=== PATIENT | female | born 1965 | race Caucasian/White ===

== ENCOUNTER 2018-10-12 04:21 | Emergency (ER) | payer MEDICAID ==
[~2018-10-12] VITALS: Ht 162.6 cm; Wt 92.3 kg
[2018-10-12 04:25] VITALS: Ht 162.6 cm; Wt 92.3 kg
[2018-10-12] MEDS ORDERED: DEXAMETHASONE 10 MG/ML 1 ML INJ IM ONE (05:00)
[2018-10-12] MEDS ORDERED: IBUPROFEN 600 MG TAB PO ONE (05:30)
[2018-10-12] MEDS ORDERED: RACEPINEPHRINE 2.25%(NEB) 0.5 ML AMP HHN ONE (05:30)
[2018-10-12] MEDS ORDERED: LORAZEPAM 0.5 MG TAB PO ONE (05:30)
[2018-10-12] MEDS ORDERED: PRED20TA PO (05:44)
[2018-10-12 05:49] VITALS: BP 129/79; PULSE 65; RESP 19
--- NOTE | 2018-10-12 05:51 | ERD ---
ER Documentation Chief Complaint Chief Complaint woke up about 20 minutes ago c/o sore throat/sob/anxious. lungs clear. HPI 53-year-old female presenting with neck pain and trouble swallowing. She feels like something is swollen and stuck in her neck. She denies any foreign bodies. She has anxiety associated with the fact that she feels there is something swelling in her neck. She denies any shortness of breath or trouble swallowing. She has never had this before. Has not taken medications for her symptoms. Denies medical problems. Allergic to pollen however no allergies to medications. NKDA. Surgical history denies. ROS All systems reviewed and are negative except as per history of present illness. Medications Home Meds Active Scripts Prednisone* (Prednisone*) 20 Mg Tab, 40 MG PO DAILY for 4 Days, TAB Prov:BENJI PONCE PA-C 10/12/18 Allergies Allergies: Coded Allergies: No Known Allergy (Unverified , 10/12/18) PMhx/Soc Medical and Surgical Hx: pt denies Medical Hx, pt denies Surgical Hx Hx Alcohol Use: No Hx Substance Use: No Hx Tobacco Use: No FmHx Family History: No diabetes, No coronary disease, No other Physical Exam Vitals Vital Signs Date Temp Pulse Resp B/P (MAP) Pulse Ox O2 O2 Flow FiO2 Time Delivery Rate 10/12/18 75 18 97 21 05:21 10/12/18 98.0 91 18 144/78 100 04:25 (100) Physical Exam GENERAL: The patient is well-appearing, well-nourished, in no acute distress HEENT: Atraumatic. Conjunctivae are pink. Pupils equal, round, and reactive to light. There is no scleral icterus. Tympanic membranes clear bilaterally. Oropharynx clear. NECK: C-spine is soft and supple. There is no meningismus. There is no cervical lymphadenopathy. CHEST: Clear to auscultation bilaterally. There are no rales, wheezes or rhonchi. HEART: Regular rate and rhythm. No murmurs, clicks, rubs or gallops. No S3 or S4. Results 24 hrs Current Medications Medications Dose Sig/Dmitri Start Time Status Last (Trade) Ordered Route PRN Stop Time Admin Dose Reason Admin 10 mg ONCE ONCE 10/12/18 DC 10/12/18 Dexamethasone IM 05:00 05:02 (Decadron) 10/12/18 05:01 Epinephrine 0.5 ml ONCE ONCE 10/12/18 DC 10/12/18 HHN 05:30 05:21 (Racepinephri 10/12/18 ne 2.25% 05:31 (Neb)) Ibuprofen 600 mg ONCE ONCE 10/12/18 DC 10/12/18 (Motrin) PO 05:30 05:22 10/12/18 05:31 Lorazepam 0.5 mg ONCE ONCE 10/12/18 DC 10/12/18 (Ativan) PO 05:30 05:22 10/12/18 05:31 Procedures/MDM ER course: Decadron given in ED. Racemic epi inhaled in ED. Symptoms improved with medications. Ativan also given ED. DIAGNOSTIC IMAGING REPORT Patient: JEAN CLAUDE BAPTISTE : 1965 Age: 53 Sex: F MR #: [id number] DOS: 10/12/18 0443 Ordering MD: GRIFFIN PONCE PA-C Location: [facility] Room/Bed: PROCEDURE: Cervical spine series CLINICAL INDICATION: Something stuck in throat TECHNIQUE: AP and lateral views COMPARISON: None available FINDINGS: The soft tissues of the neck and epiglottis are normal. No radiodense foreign bodies are present. The spine alignment imaged from the skull base to the C6-7 level is normal. No definite evidence for fractures or traumatic subluxations are present. Reservation of vertebral body heights disc spaces are noted. The bilateral lung apices and imaged ribs and clavicles are clear. IMPRESSION: 1. No radiodense foreign bodies and normal soft tissue neck. MDM: 53-year-old female presenting with swelling sensation in her throat. I have considered epiglottitis however of low suspicion as patient is afebrile and does not have a hot potato voice. Patient is swallowing saliva without difficulty. I have low suspicion for retained foreign body. Patient found relief with medications given in the ED. Patient is discharged with supportive medications and told to follow-up with primary care. Patient is told symptoms change or worsen to return to the ER. All questions answered at discharge Departure Diagnosis: Primary Impression: Sore throat Condition: Stable Patient Instructions: When You Have a Sore Throat Referrals: COMMUNITY CLINICS YOU HAVE RECEIVED A MEDICAL SCREENING EXAM AND THE RESULTS INDICATE THAT YOU DO NOT HAVE A CONDITION THAT REQUIRES URGENT TREATMENT IN THE EMERGENCY DEPARTMENT. FURTHER EVALUATION AND TREATMENT OF YOUR CONDITION CAN WAIT UNTIL YOU ARE SEEN IN YOUR DOCTORS OFFICE WITHIN THE NEXT 1-2 DAYS. IT IS YOUR RESPONSIBILITY TO MAKE AN APPOINTMENT FOR FOLOW-UP CARE. IF YOU HAVE A PRIMARY DOCTOR --you should call your primary doctor and schedule an appointment IF YOU DO NOT HAVE A PRIMARY DOCTOR YOU CAN CALL OUR PHYSICIAN REFERRAL HOTLINE AT IF YOU CAN NOT AFFORD TO SEE A PHYSICIAN YOU CAN CHOSE FROM THE FOLLOWING [facility] [address] [facility] [address] [facility] [facility] [address] [facility] [address] [facility] [address] [facility] [facility] [address] Additional Instructions: FOLLOW UP WITH YOUR PRIMARY CARE PHYSICIAN TOMORROW.Return to this facility if you are not improving as expected. BENJI PONCE PA-C Oct 12, 2018 05:51
== END 2018-10-12 05:59 | disposition home or self-care (01) ==
LOC: FTE 04:21
DX: J02.9 Acute pharyngitis, unspecified (principal); R06.02 Shortness of breath
CPT/HCPCS: 70360; 94664; 96372; J1100; Z7502; Z7610